=== PATIENT | female | born 1990 | race Caucasian/White ===

== ENCOUNTER → 2017-01-10 | Outpatient (CLI) | payer OTHER ==
--- NOTE | 2017-01-11 06:15 | REP ---
Clinical: Left upper extremity mass. Technique: Real time badillo scale and color evaluation using linear high frequency transducer. Findings: Directed ultrasound examination at the site of mobile mass corresponds to a 2.1 x 1.5 x 2.0 cm well demarcated ovoid hyperechoic minimally vascular structure compatible with lipoma. Impression: Although mass corresponds to presumed benign lipoma. Signed by Familia Elias MD 01/11/2017 06:07 A
== END ==
LOC: M RAD 12:28
PROVIDERS: ATTEND Physician Assistant
DX: D17.22 Benign lipomatous neoplasm of skin and subcutaneous tissue of left arm (principal)

== ENCOUNTER → 2017-07-15 | Outpatient (CLI) | payer OTHER ==
--- NOTE | 2017-07-15 11:54 | REP ---
Obstetric ultrasound for anatomy: There is a single intrauterine gestation in a breech presentation. There is movement and cardiac activity, the heart rate is 168 beats per minute. There is a posterior placenta with no previa or abruptio and is grade zero maturity. The amniotic fluid volume subjectively is normal. Cervix is 5 cm length. By the ultrasound today the gestational age is 18 weeks 1 day with an DOMINGO of 12/15/2017. By LMP gestational age is 18 weeks 5 days with an DOMINGO of 12/11/2017. weight is 225 grams (0 pounds, 7 ounces). This is the 26th percentile for 18 weeks 5 days. The following anatomic structures are identified and are unremarkable: Cranial lateral ventricles, cerebellum, choroid plexus, cavum septum pellucidum, facial profile, face, lungs, diaphragm, stomach, cord insertion, three-vessel cord, kidneys, bladder, spine and upper lower extremities. Suboptimally demonstrated are the four-chamber view of the heart and the cardiac right and left ventricular outflow tracts and upper lip. . A followup study dedicated to these structures might be considered. Otherwise, there are no anomalies. Signed by Demetrius Suarez MD 07/15/2017 11:46 A
== END ==
LOC: M RAD 08:54
PROVIDERS: ATTEND Obstetrics & Gynecology
DX: Z34.82 Encounter for supervision of other normal pregnancy, second trimester (principal)

== ENCOUNTER → 2017-08-11 | Outpatient (CLI) | payer OTHER | LOC: M RAD 12:12 | DX: Z34.82 Encounter for supervision of other normal pregnancy, second trimester (principal); Z3A.22 22 weeks gestation of pregnancy | CPT/HCPCS: 76816 ==

== ENCOUNTER → 2017-09-12 | Outpatient (CLI) | payer OTHER ==
[2017-09-12 14:33] LABS: BASO % 0.2 % (0.0-1.0); EOS # 0.1 10^3/uL (0.0-0.50); EOS % 0.5 % (0.0-3.0); HEMATOCRIT 36.9 % (36.0-47.0); HEMOGLOBIN 12.5 g/dl (12.0-16.0); IMMATURE GRANULOCYTE % 0.7 % (0-3.0); LYMPH # 2.1 10^3/uL (1.5-6.5); LYMPH % 18.9 % (24.0-44.0); MEAN CORPUSCULAR HEMOGLOBIN 30.4 pg (27.0-33.0); MEAN CORPUSCULAR HGB CONC 33.9 g/dl (32.0-36.5); MEAN CORPUSCULAR VOLUME 89.8 fl (80.0-96.0); MONO # 0.4 10^3/uL (0.0-0.8); MONO % 3.3 % (0.0-5.0); NEUTROPHILS # 8.5 10^3/uL (1.8-7.7); NEUTROPHILS % 76.4 % (36.0-66.0); PLATELET COUNT, AUTOMATED 201 10^3/uL (150-450); RED BLOOD COUNT 4.11 10^6/uL (4.00-5.40); WHITE BLOOD COUNT 11.1 10^3/uL (4.0-10.0)
[2017-09-12 15:04] LABS: GLUCOSE CHALLENGE TEST 1 HOUR 134 MG/DL (LESS THAN 140)
== END ==
LOC: M LAB 12:43
DX: Z36.2 Encounter for other antenatal screening follow-up (principal)
CPT/HCPCS: 82950

== ENCOUNTER → 2017-09-20 | Outpatient (CLI) | payer OTHER ==
[2017-09-20 08:20] LABS: GLUCOSE, FASTING 78 MG/DL (LESS THAN 95)
[2017-09-20 08:58] LABS: 1 HR GLUCOSE 125 MG/DL (LESS THAN 180)
[2017-09-20 09:48] LABS: 2 HR GLUCOSE 138 MG/DL (LESS THAN 155)
[2017-09-20 11:01] LABS: 3 HR GLUCOSE 133 MG/DL (LESS THAN 140)
== END ==
LOC: M LAB 06:49
DX: Z34.82 Encounter for supervision of other normal pregnancy, second trimester (principal)

== ENCOUNTER → 2017-11-10 | Outpatient (REF) | payer OTHER | LOC: M LAB REF 17:10 | DX: Z34.83 Encounter for supervision of other normal pregnancy, third trimester (principal) ==

== ENCOUNTER 2017-12-12 12:04 | Inpatient (IN) | payer OTHER ==
[2017-12-12] MEDS: LACTATED RINGER'S 1000 ML IV (15:20)
[2017-12-12] MEDS: LR 1,000 ML IV (16:04)
[2017-12-12] MEDS: OXYTOCIN DRIP 30 UNITS in APPROPRIATE DILUENT 1 EA IV (16:05)
[2017-12-12 16:18] LABS: HEMOGLOBIN 12.4 g/dl (12.0-15.5); MEAN CORPUSCULAR HEMOGLOBIN 29.5 pg (27.0-33.0); MEAN CORPUSCULAR HGB CONC 33.5 g/dl (32.0-36.5); MEAN CORPUSCULAR VOLUME 88.1 fl (80.0-96.0); PLATELET COUNT, AUTOMATED 186 10^3/uL (150-450); RED CELL DISTRIBUTION WIDTH 13.2 % (11.5-14.5); WHITE BLOOD COUNT 12.4 10^3/uL (4.0-10.0)
[2017-12-12 16:52] LABS: AMPHETAMINES URINE REFLEX NEGATIVE (NEGATIVE); BARBITURATES URINE REFLEX NEGATIVE (NEGATIVE); BENZODIAZEPINES URINE REFLEX NEGATIVE (NEGATIVE); CANNABINOIDS URINE REFLEX NEGATIVE (NEGATIVE); COCAINE METABOLITE URINE REFLE NEGATIVE (NEGATIVE); METHADONE URINE REFLEX NEGATIVE (NEGATIVE); OPIATES URINE REFLEX NEGATIVE (NEGATIVE); PHENCYCLIDINE URINE REFLEX NEGATIVE (NEGATIVE)
[2017-12-12] MEDS ORDERED: FENTANYL 2MCG/ML ROPIVACAINE 0.2% IN 0.9% NACL 200ML IVBAG As Ordered (21:52)
[2017-12-12] MEDS ORDERED: REFRIGERATOR IV KEYS XX (23:40)
[2017-12-12] MEDS ORDERED: EPIDURAL COMMENT XX (23:40)
[2017-12-12] MEDS ORDERED: ONDANSETRON 4MG/2ML VIAL (J2405) IV (23:40)
[2017-12-12] MEDS ORDERED: EPIDURAL/PCA KEYS XX (23:40)
[2017-12-12] MEDS ORDERED: ePHEDrine SULFATE 25 MG/5 ML(5MG/ML) SYRINGE IV (23:40)
[2017-12-12] MEDS ORDERED: LACTATED RINGER'S 1000 ML IV (23:40)
[2017-12-12] MEDS ORDERED: diphenhydrAMINE INJ 50MG/ML VIAL (J1200) IV (23:40)
[2017-12-12] MEDS ORDERED: NALOXONE INJ 0.4 MG/1 ML VIAL (J2310) IV (23:40)
[2017-12-12] MEDS ORDERED: FENTANYL/ROPIVACAINE/NACL BAG 200 ML EPIDURAL (23:40)
[2017-12-13] MEDS ORDERED: ePHEDrine SULFATE 25 MG/5 ML(5MG/ML) SYRINGE As Ordered (01:49)
[2017-12-13] MEDS: PRENATAL VITAMINS CHEWABLE TABLET PO (09:00)
[2017-12-13] MEDS: LR 1,000 ML IV ×4 (09:23→22:40)
[2017-12-13] MEDS ORDERED: BICITRA 30ML SOLN UDC As Ordered (11:01)
[2017-12-13] MEDS ORDERED: ceFAZolin 2 GM/D5W 50 ML IV BAG (J0690 PER 500MG) As Ordered (11:01)
[2017-12-13] MEDS: AZITHROMYCIN INJ 500 MG, VIAL MATE ADAPTER 1 EACH in D5W 250 ML IV (11:26)
[2017-12-13] MEDS ORDERED: LIDOCAINE PRES-FREE 2% 10ML AMP As Ordered ×2 (11:45)
[2017-12-13] MEDS ORDERED: NALBUPHINE HCL 10 MG/ML AMP (J2300) IV (11:50)
[2017-12-13] MEDS ORDERED: NALOXONE INJ 0.4 MG/1 ML VIAL (J2310) IV ×2 (11:50)
[2017-12-13] MEDS ORDERED: ONDANSETRON 4MG/2ML VIAL (J2405) IV ×3 (11:50→13:45)
[2017-12-13] MEDS: BICITRA 30ML SOLN UDC PO (11:51)
[2017-12-13] MEDS ORDERED: MORPHINE PRES-FREE INJ 10 MG/10 ML VIAL (J2274) As Ordered (11:59)
[2017-12-13] MEDS ORDERED: CHLOROPROCAINE PRES. FREE 3% INJ 20 ML VIAL (J2400) As Ordered (12:16)
[2017-12-13] MEDS ORDERED: fentaNYL 100 MCG/2 ML INJECTION (J3010) As Ordered ×2 (12:40→12:57)
[2017-12-13] MEDS ORDERED: ONDANSETRON 4MG/2ML VIAL (J2405) As Ordered (12:51)
[2017-12-13] MEDS ORDERED: OXYTOCIN INJ 10 UNITS/ML VIAL (J2590) As Ordered ×7 (12:51→12:54)
[2017-12-13] MEDS ORDERED: KETOROLAC 60 MG/2 ML VIAL (J1885) As Ordered (12:51)
[2017-12-13] MEDS ORDERED: PERCOCET 5MG/325MG TAB PO ×2 (13:30→13:45)
[2017-12-13] MEDS ORDERED: PROMETHAZINE 25 MG TAB PO (13:30)
[2017-12-13] MEDS ORDERED: fentaNYL 100 MCG/2 ML INJECTION (J3010) IV (13:45)
[2017-12-13] MEDS: METHYLERGONOVINE MALEATE 0.2 MG/ML VIAL (J2210) IM (13:51)
[2017-12-13] MEDS: MEASLES,MUMPS,RUBELLA VACCINE INJ (MMR-II) (90707) SC (14:11)
[2017-12-13] MEDS: RHOGAM 300 MCG (1500 IU) INJ (J2790) IM (14:11)
[2017-12-13] MEDS: METOCLOPRAMIDE INJ 10MG/2ML VIAL (J2765) IV (16:00)
[2017-12-13] MEDS: KETOROLAC 30 MG/ML VIAL (J1885) IV (18:31)
[2017-12-13] MEDS: DOCUSATE SODIUM 100 MG CAP PO (20:39)
[2017-12-14] MEDS: KETOROLAC 30 MG/ML VIAL (J1885) IV ×3 (01:36→12:36)
[2017-12-14] MEDS: LR 1,000 ML IV (05:27)
[2017-12-14 07:03] LABS: MEAN CORPUSCULAR HEMOGLOBIN 30.3 pg (27.0-33.0); MEAN CORPUSCULAR HGB CONC 34.1 g/dl (32.0-36.5); MEAN CORPUSCULAR VOLUME 88.8 fl (80.0-96.0); PLATELET COUNT, AUTOMATED 143 10^3/uL (150-450); RED BLOOD COUNT 3.04 10^6/uL (4.00-5.40); RED CELL DISTRIBUTION WIDTH 13.3 % (11.5-14.5); WHITE BLOOD COUNT 17.2 10^3/uL (4.0-10.0)
[2017-12-14 07:09] LABS: HEMOGLOBIN 9.2 g/dl (12.0-15.5)
[2017-12-14] MEDS: DOCUSATE SODIUM 100 MG CAP PO ×2 (08:31→20:59)
[2017-12-14] MEDS: PRENATAL VITAMINS CHEWABLE TABLET PO (08:31)
[2017-12-14] MEDS: IBUPROFEN 800 MG TAB PO (20:59)
[2017-12-15] MEDS: IBUPROFEN 800 MG TAB PO (05:19)
[2017-12-15] MEDS: DOCUSATE SODIUM 100 MG CAP PO (09:20)
[2017-12-15] MEDS: PRENATAL VITAMINS CHEWABLE TABLET PO (09:20)
[2017-12-15] MEDS: PERCOCET 5MG/325MG TAB PO (10:30)
== END 2017-12-15 14:52 | disposition home or self-care (01) | DRG 540 ==
LOC: M LDI 12:04 → M OBS 12-13 14:57
PROVIDERS: Obstetrics & Gynecology
PROC: 10D00Z1 Extraction of Products of Conception, Low, Open Approach (ICD-10-PCS; principal; 2017-12-13 11:56)
DX: O48.0 Post-term pregnancy (principal); O62.0 Primary inadequate contractions; Z37.0 Single live birth; Z3A.40 40 weeks gestation of pregnancy

== ENCOUNTER 2017-12-17 19:09 | Inpatient (IN) | payer OTHER ==
[2017-12-17 20:30] LABS: BASO % 0.4 % (0.0-1.0); EOS # 0.2 10^3/uL (0.0-0.50); EOS % 1.6 % (0.0-3.0); HEMATOCRIT 30.2 % (36.0-47.0); IMMATURE GRANULOCYTE % 0.6 % (0-3.0); LYMPH # 2.5 10^3/uL (1.5-6.5); LYMPH % 22.9 % (24.0-44.0); MEAN CORPUSCULAR HEMOGLOBIN 29.9 pg (27.0-33.0); MEAN CORPUSCULAR HGB CONC 33.1 g/dl (32.0-36.5); MEAN CORPUSCULAR VOLUME 90.1 fl (80.0-96.0); MONO # 0.6 10^3/uL (0.0-0.8); MONO % 5.8 % (0.0-5.0); NEUTROPHILS # 7.5 10^3/uL (1.8-7.7); NEUTROPHILS % 68.7 % (36.0-66.0); PLATELET COUNT, AUTOMATED 268 10^3/uL (150-450); RED BLOOD COUNT 3.35 10^6/uL (4.00-5.40); WHITE BLOOD COUNT 10.9 10^3/uL (4.0-10.0)
[2017-12-17 20:53] LABS: INR 0.89; PROTHROMBIN TIME 12.1 SECONDS (12.4-14.5)
[2017-12-17 20:54] LABS: ALBUMIN 2.6 GM/DL (3.2-5.2); ALBUMIN/GLOBULIN RATIO 0.72 (1.00-1.93); ALKALINE PHOSPHATASE 91 U/L (45-117); ALT/SGPT 105 U/L (12-78); ANION GAP 8 MEQ/L (8-16); AST/SGOT 37 U/L (7-37); BILIRUBIN,DIRECT 0.1 MG/DL (0.0-0.2); BILIRUBIN,TOTAL 0.3 MG/DL (0.2-1.0); BLOOD UREA NITROGEN 9 MG/DL (7-18); CALCIUM LEVEL 8.4 MG/DL (8.5-10.1); CARBON DIOXIDE LEVEL 25 MEQ/L (21-32); CHLORIDE LEVEL 112 MEQ/L (98-107); CPK CREATINE PHOSPHOKINASE 112 U/L (26-192); CREATININE FOR GFR 0.68 MG/DL (0.55-1.30); GLOMERULAR FILTRATION RATE > 60.0 (>60); GLUCOSE, FASTING 80 MG/DL (70-100); SODIUM LEVEL 145 MEQ/L (136-145); TOTAL PROTEIN 6.2 GM/DL (6.4-8.2); TROPONIN I < 0.02 NG/ML (< 0.10)
[2017-12-17 20:55] LABS: CK-MB VALUE MASS 2.3 NG/ML (<3.6); MB/CK RELATIVE INDEX 2.05 (< OR =4); NT-PRO BNP 2534 PG/ML (<125)
[2017-12-17] MEDS ORDERED: ISOVUE-370 76% 100ML VIAL (Q9967) As Ordered (21:01)
[2017-12-17] MEDS ORDERED: ONDANSETRON 4 MG TAB (S0181) PO (23:30)
[2017-12-17] MEDS ORDERED: PERCOCET 5MG/325MG TAB PO ×2 (23:30)
[2017-12-18] MEDS: FUROSEMIDE 40 MG/4 ML VIAL (J1940) IV ×2 (00:13→06:32)
[2017-12-18 09:13] LABS: ANION GAP 8 MEQ/L (8-16); BLOOD UREA NITROGEN 10 MG/DL (7-18); CALCIUM LEVEL 8.2 MG/DL (8.5-10.1); CARBON DIOXIDE LEVEL 25 MEQ/L (21-32); CHLORIDE LEVEL 107 MEQ/L (98-107); CREATININE FOR GFR 0.75 MG/DL (0.55-1.30); GLOMERULAR FILTRATION RATE > 60.0 (>60); GLUCOSE, FASTING 82 MG/DL (70-100); POTASSIUM SERUM 3.7 MEQ/L (3.5-5.1); SODIUM LEVEL 140 MEQ/L (136-145)
[2017-12-18] MEDS: POTASSIUM CHLORIDE 10 MEQ SR TABLET PO (11:06)
[2017-12-18] MEDS: ENOXAPARIN 40 MG/0.4 ML SYRINGE (J1650) SC (11:06)
[2017-12-18] MEDS: SPIRONOLACTONE 12.5MG PER 1/2 TABLET PO (12:20)
[2017-12-18] MEDS: ACETAMINOPHEN 500 MG TAB PO (20:42)
[2017-12-19 06:59] LABS: ALBUMIN 2.6 GM/DL (3.2-5.2); ANION GAP 8 MEQ/L (8-16); BLOOD UREA NITROGEN 13 MG/DL (7-18); CALCIUM LEVEL 8.6 MG/DL (8.5-10.1); CARBON DIOXIDE LEVEL 23 MEQ/L (21-32); CHLORIDE LEVEL 111 MEQ/L (98-107); CREATININE FOR GFR 0.63 MG/DL (0.55-1.30); GLOMERULAR FILTRATION RATE > 60.0 (>60); GLUCOSE, FASTING 68 MG/DL (70-100); SODIUM LEVEL 142 MEQ/L (136-145)
[2017-12-19] MEDS: ENOXAPARIN 40 MG/0.4 ML SYRINGE (J1650) SC (08:20)
[2017-12-19] MEDS: PRENATAL VITAMINS CHEWABLE TABLET PO (08:20)
[2017-12-19] MEDS: FUROSEMIDE 20 MG TAB PO (08:20)
[2017-12-19] MEDS: SPIRONOLACTONE 12.5MG PER 1/2 TABLET PO (10:34)
== END 2017-12-19 16:47 | disposition home or self-care (01) | DRG 561 ==
LOC: M ED 19:09 → M MSPAV 12-18 14:51 → M ED INP 23:16
DX: O14.95 Unspecified pre-eclampsia, complicating the puerperium (principal); I50.9 Heart failure, unspecified; O99.43 Diseases of the circulatory system complicating the puerperium

== ENCOUNTER → 2017-12-29 | Outpatient (CLI) | payer OTHER ==
[2017-12-29 18:17] LABS: APPEARANCE, URINE CLOUDY (CLEAR); BACTERIA, URINE AUTO 1+ (NEGATIVE); BILIRUBIN, URINE AUTO NEGATIVE (NEGATIVE); BLOOD, URINE BLOOD 3+ (NEGATIVE); COLOR, URINE YELLOW (YELLOW); GLUCOSE, URINE (UA) AUTO NEGATIVE (NEGATIVE); KETONE, URINE AUTO NEGATIVE (NEGATIVE); LEUKOCYTE ESTERASE, URINE AUTO 3+ (NEGATIVE); MUCUS, URINE SMALL (NEGATIVE); NITRITE, URINE AUTO NEGATIVE (NEGATIVE); PROTEIN, URINE AUTO 1+ mg/dL (NEGATIVE); RBC, URINE AUTO 115 /HPF (0-3); SPECIFIC GRAVITY URINE AUTO 1.014 (1.002-1.035); SQUAMOUS EPITHELIAL CELL UR AU 0 /HPF (0-6); UROBILINOGEN, URINE AUTO 0.2 mg/dL (0.0-2.0); WBC, URINE AUTO 161 /HPF (0-3)
[2017-12-29 18:52] LABS: ALBUMIN 3.8 GM/DL (3.2-5.2); ANION GAP 6 MEQ/L (8-16); BLOOD UREA NITROGEN 14 MG/DL (7-18); CALCIUM LEVEL 9.1 MG/DL (8.5-10.1); CARBON DIOXIDE LEVEL 28 MEQ/L (21-32); CHLORIDE LEVEL 107 MEQ/L (98-107); GLOMERULAR FILTRATION RATE > 60.0 (>60); GLUCOSE, FASTING 85 MG/DL (70-100); MAGNESIUM LEVEL 2.1 MG/DL (1.8-2.4); NT-PRO BNP 73 PG/ML (<125); PHOSPHORUS LEVEL 4.4 MG/DL (2.5-4.9); POTASSIUM SERUM 4.5 MEQ/L (3.5-5.1); SODIUM LEVEL 141 MEQ/L (136-145)
[2018-01-02 14:13] LABS: PHOSPHOLIPIDS LEVEL 232 mg/dL (150-250)
== END ==
LOC: M LRY 13:31
DX: O14.95 Unspecified pre-eclampsia, complicating the puerperium (principal); O99.419 Diseases of the circulatory system complicating pregnancy, unspecified trimester; I50.31 Acute diastolic (congestive) heart failure; Z3A.00 Weeks of gestation of pregnancy not specified
CPT/HCPCS: 83735